=== PATIENT | female | born 1930 | race Caucasian/White ===

== ENCOUNTER 2016-09-19 14:42 | Emergency (ER) | payer MEDICARE ==
[2016-09-19 15:15] LABS: ABSOLUTE NEUTROPHIL COUNT 4.1 K/mm3 (1.8-7.7); BASO % 0.6 % (0.2-1.0); EOS # 0.1 (0.0-0.5); EOS % 1.7 % (0.9-2.9); HEMATOCRIT 36.6 % (37.0-47.0); HEMOGLOBIN 11.9 gm/l (12.0-16.0); IMM NEUT% 0.2 % (0-1); LYMPH # 1.4 (1.0-4.8); LYMPH % 22.7 % (15-45); MEAN CELL VOLUME 94.3 fl (81.0-99.0); MEAN CORPUSCULAR HEMOGLOBIN 30.7 pg (27.0-31.0); MEAN CORPUSCULAR HGB CONC 32.5 g/dl (33.0-37.0); MEAN PLATELET VOLUME 9.8 fl (7.4-10.4); MONO # 0.7 (0.0-0.8); MONO % 10.7 % (4-12); NEUT % 64.1 % (43-75); PLATELET COUNT 167 K/mm3 (130-400); RED CELL DISTRIBUTION WIDTH 13.3 % (11.5-14.5)
[2016-09-19 15:31] LABS: TROPONIN I < 0.01 ng/ml (0.0-0.06)
[2016-09-19 15:34] LABS: CKMB ISOENZYME 5.6 ng/ml (0.6-6.3)
[2016-09-19 15:37] LABS: ALB/GLOB RATIO 1.2 (>1.0); ALBUMIN 3.7 gm/dL (3.5-5.7); CALCIUM 9.1 mg/dL (8.6-10.3); MAGNESIUM 1.9 mg/dL (1.9-2.7)
--- NOTE | 2016-09-19 16:14 | RAD ---
09/19/2016 4:09 PM CHEST - 2 VIEWS History: Chest pain and palpitations Comparison: 10/25/2015 Findings: Two views of the chest are obtained. The lungs again demonstrate blunting of the right costophrenic angle likely relating to pleural thickening as seen on prior study. Probable calcified granuloma is noted in the left midlung as seen on prior exam. The cardiomediastinal silhouette enlarged but stable. The osseous structures are intact.. Surgical clips are present in the right hilum. IMPRESSION: Stable cardiomegaly and other findings as above..
== END 2016-09-19 17:02 | disposition home or self-care (01) ==
LOC: ED 14:42
DX: R07.9 Chest pain, unspecified (principal); I10 Essential (primary) hypertension; H40.9 Unspecified glaucoma; I51.81 Takotsubo syndrome; Z79.82 Long term (current) use of aspirin; Z79.899 Other long term (current) drug therapy; Z88.8 Allergy status to other drugs, medicaments and biological substances